=== PATIENT | male | born 1950 | race Caucasian/White ===

== ENCOUNTER 2018-08-07 12:09 | Emergency (ER) | payer OTHER, BC ==
[2018-08-07] MEDS ORDERED: SODIUM CHLORIDE 1,000 ML IV STA (12:32)
[2018-08-07] MEDS ORDERED: ACETAMINOPHEN 1000 MG/100 ML VIAL (NON FORMULARY) IVPB ONE (12:32)
[2018-08-07] MEDS ORDERED: FAMOTIDINE 20 MG/50 ML IVPB 20 MG/50 ML MG IVPB ONE ×2 (12:32→12:34)
[2018-08-07 12:33] VITALS: BMI 32.6
[2018-08-07 12:33] LABS: URINE APPEARANCE Clear; URINE BILIRUBIN Negative (NEGATIVE); URINE COLOR Yellow; URINE GLUCOSE (UA) Negative (NEGATIVE); URINE KETONE Negative (NEGATIVE); URINE LEUK ESTERASE Negative (NEGATIVE); URINE NITRITE Negative (NEGATIVE); URINE PROTEIN Negative (NEGATIVE); URINE UROBILINOGEN 0.2 (0.2-1.0)
[2018-08-07] MEDS ORDERED: ACETAMINOPHEN INJECTION 100 ML IVPB ONE (12:34)
--- NOTE | 2018-08-07 12:35 | PDOC ---
History of Present Illness - General Chief Complaint: Pain Stated Complaint: BACK PAIN Time Seen by Provider: 08/07/18 12:13 - History of Present Illness Initial Comments: 08/07/18 12:33 68 M with h/o HTN, kidney stones, presents to ED with R sided abdominal pain. Pt states that the pain started about 4 days ago. It is constant, progressively worsening, radiating from his RUQ to his RLQ and R flank. Pt denies F/C. Denies CP/SOB. Denies N/V/D. Pt states that he was recently treated for H pylori and completed his course of abx 2 weeks ago. Pt states that he has had prior cholecystectomy. Past History - Past Medical History Allergies/Adverse Reactions: Allergies Allergy/AdvReac Type Severity Reaction Status Date / Time No Known Allergies Allergy Verified 01/22/16 08:38 Home Medications: Ambulatory Orders Aspirin [ASA -] 81 mg PO DAILY 10/15/14 Atenolol [Tenormin -] 25 mg PO DAILY 10/15/14 Ascorbate Calcium [Vitamin C] 500 mg PO DAILY 08/07/18 Cholecalciferol (Vitamin D3) [Vitamin D] 2,000 unit PO DAILY 08/07/18 [place]field-3/Dha/Epa/Fish Oil [Fish Oil 1,360 mg Softgel] 1 each PO DAILY 08/07/18 Oxycodone HCl/Acetaminophen [Percocet 5-325 mg Tablet] 1 tab PO Q6H PRN #20 tablet MDD 4 tabs 08/07/18 Pantoprazole Sodium [Protonix] 40 mg PO DAILY 08/07/18 Tamsulosin HCl [Flomax] 0.4 mg PO DAILY #7 cap.er.24h 08/07/18 Vitamin B Complex 1 each PO DAILY 08/07/18 Asthma: No Cancer: Yes (RT ARM) Diabetes: No HTN: Yes Kidney Stones: Yes - Immunization History Immunization Up to Date: Yes - Suicide/Smoking/Psychosocial Hx Smoking Status: No Smoking History: Never smoked Have you smoked in the past 12 months: No Number of Cigarettes Smoked Daily: 0 Cigars Per Day: 0 Hx Alcohol Use: Yes (glass of wine daily) Drug/Substance Use Hx: No Substance Use Type: None Review of Systems - Review of Systems Comments:: 08/07/18 12:34 "GENERAL/CONSTITUTIONAL: No fever or chills. No weakness. HEAD, EYES, EARS, NOSE AND THROAT: No change in vision. No ear pain or discharge. No sore throat. CARDIOVASCULAR: No chest pain, no shortness of breath, no loss of consciousness RESPIRATORY: No cough, wheezing, or hemoptysis. GASTROINTESTINAL: +R sided abdominal pain, No nausea, vomiting, diarrhea or constipation. GENITOURINARY: No dysuria, frequency, or change in urination. MUSCULOSKELETAL: No joint or muscle swelling or pain. No neck or back pain. SKIN: No rash NEUROLOGIC: No vertigo, no change in strength/sensation. ENDOCRINE: No increased thirst. No abnormal weight change. HEMATOLOGIC/LYMPHATIC: No anemia, easy bleeding, or history of blood clots. ALLERGIC/IMMUNOLOGIC: No hives or skin allergy. *Physical Exam - Physical Exam Comments: 08/07/18 12:34 GENERAL: Awake, alert, and fully oriented, in no acute distress. HEAD: No signs of trauma EYES: PERRLA, EOMI, sclera anicteric, conjunctiva clear ENT: Auricles normal inspection, hearing grossly normal, nares patent, oropharynx clear without exudates. Moist mucosa NECK: Nontender, no stepoffs, Normal ROM, supple, no lymphadenopathy, JVD, or masses LUNGS: Breath sounds equal, clear to auscultation bilaterally. No wheezes, and no crackles HEART: Regular rate and rhythm, normal S1 and S2, no murmurs, rubs or gallops ABDOMEN: + RUQ and RLQ TTP, Soft, normoactive bowel sounds. No guarding, no rebound. No masses, no CVAT EXTREMITIES: Normal range of motion, no edema. No clubbing or cyanosis. No cords, erythema, or tenderness NEUROLOGICAL: Cranial nerves II through XII intact. 5/5 strength and sensation in all extremities, Normal speech, normal gait, normal cerebellar function SKIN: Warm, Dry, normal turgor, no rashes or lesions noted. ED Treatment Course - LABORATORY CBC & Chemistry Diagram: 08/07/18 12:41 08/07/18 12:41 - RADIOLOGY Radiology Studies Ordered: Category Date Time Status ABDOMEN & PELVIS CT WITH CONTR [CT] Stat CT Scan 08/07/18 12:31 Ordered Medical Decision Making - Medical Decision Making 08/07/18 12:34 68 M with RUQ and RLQ abdominal pain. Pt has had prior cholecystectomy. Suspect renal colic given h/o kidney stones, though pt without CVAT. Also consider appy , though less likely given lack of fevers and vomiting. Will also r/o gastric perf given history of H pylori. - Labs, UA - CTAP - GI cocktail 08/07/18 13:52 Cr 1.7 (pt's baseline) - unable to get contrast CT CTAP non-con ordered Labs otherwise wnl. 08/07/18 14:23 CT shows 3mm stone in R ureter. Pt with baseline renal function. No evidence of infection. 08/07/18 14:38 Pt reassessed - pain is well controlled. Pt tolerating PO Pt is well appearing, with normal vitals. Clinically stable for DC at this time. I discussed the physical exam findings, ancillary test results and final diagnoses with the patient. I answered all of the patient's questions. The patient was satisfied with the care received and felt comfortable with the discharge plan and treatment plan. The patient agrees to follow up with the primary care physician within 24-72 hours. *DC/Admit/Observation/Transfer Diagnosis at time of Disposition: Kidney stone - Discharge Dispostion Disposition: HOME Condition at time of disposition: Good - Prescriptions Prescriptions: Oxycodone HCl/Acetaminophen [Percocet 5-325 mg Tablet] 1 tab PO Q6H PRN #20 tablet MDD 4 tabs PRN Reason: Pain Tamsulosin HCl [Flomax] 0.4 mg PO DAILY #7 cap.er.24h - Referrals Referrals: Tadeo Regalado MD [Primary Care Provider] - Saravanan Urbina MD [Staff Physician] - - Patient Instructions Printed Discharge Instructions: DI for Kidney Stones Additional Instructions: You have a 3mm kidney stone on the right side. Drink plenty of water to help it pass. Take the flomax as prescribed, and take one percocet every 6 hours as needed for pain. You can take up to two at a time if you need. If you experience worsening pain, fevers, vomiting, or any other concerning symptoms, return to the ER immediately. Otherwise, follow up with a urologist within 1 week. Call the number provided to make an appointment. - Post Discharge Activity - Attestations Physician Attestion: 08/07/18 14:40 I, Dr. Charanjit Monique MD, attest that this document has been prepared under my direction and personally reviewed by me in its entirety. I further attest, that it accurately reflects all work, treatment, procedures and medical decision -making performed by me.
[2018-08-07] MEDS ORDERED: morphine CARPU-JECT 4 MG/1 ML DISP.SYRIN IVPUSH ONE ×2 (12:56→13:46)
[2018-08-07] MEDS ORDERED: morphine SULFATE 4 MG/ML VIAL ONE ×2 (12:57→13:51)
[2018-08-07 13:03] LABS: BASO % 0.6 % (0-2.0); EOS % 0.6 % (0-4.5); HEMATOCRIT 42.2 % (35.4-49); LYMPH % 23.5 % (8-40); MCH 29.9 pg (25.7-33.7); MCHC 33.1 g/dl (32.0-35.9); MEAN CELL VOLUME 90.5 fl (80-96); MEAN PLT VOLUME 9.3 fl (7.5-11.1); MONO % 7.3 % (3.8-10.2); PLATELET COUNT 202 K/MM3 (134-434); RBC 4.67 M/mm3 (4.00-5.60); RDW 12.8 % (11.9-15.9); WHITE BLOOD COUNT 7.9 K/mm3 (4.0-10.8)
[2018-08-07 13:09] LABS: ALBUMIN 4.1 g/dl (3.5-5.0); ALK PHOS 44 U/L (32-92); ANION GAP 10 MMOL/L (8-16); BILIRUBIN,TOTAL 0.8 mg/dl (0.2-1.0); BLOOD UREA NITROGEN 27 mg/dl (7-18); CALCIUM 8.8 mg/dl (8.4-10.2); CHLORIDE 103 mmol/L (98-107); CO2 25 mmol/L (22-28); CREATININE 1.7 mg/dl (0.6-1.3); GLUCOSE,RANDOM 103 mg/dl (74-106); POTASSIUM 4.5 mmol/L (3.5-5.1); SGOT/AST 28 U/L (10-42); SGPT/ALT 29 U/L (10-40); SODIUM 138 mmol/L (136-145); TOT PROT 7.3 g/dl (6.4-8.3)
[2018-08-07 13:48] LABS: EPI CELLS NONE SEEN /HPF; URINE WBC NONE SEEN (0-2)
[2018-08-07 14:02] VITALS: BP 155/80; PULSE 75; TEMP 98.2
[2018-08-07] MEDS ORDERED: MAG HYDROX/AL HYDROX/SIMETH 30 ML UNIT-DOSE CUP PO ONE (14:36)
[2018-08-07] MEDS ORDERED: MAG HYDROX/AL HYDROX/SIMETH 30 ML UNIT-DOSE CUP ONE (14:43)
[2018-08-07 14:51] LABS: LIPASE 68 U/L (73-393)
== END 2018-08-07 14:51 | disposition home or self-care (01) ==
LOC: FER 12:09
PROC: 3E033NZ Introduction of Analgesics, Hypnotics, Sedatives into Peripheral Vein, Percutaneous Approach (ICD-10-PCS; principal; 2018-08-07)
PROC: 3E033GC Introduction of Other Therapeutic Substance into Peripheral Vein, Percutaneous Approach (ICD-10-PCS; 2018-08-07)
PROC: 3E0337Z Introduction of Electrolytic and Water Balance Substance into Peripheral Vein, Percutaneous Approach (ICD-10-PCS; 2018-08-07)
DX: N20.0 Calculus of kidney (principal); Z87.442 Personal history of urinary calculi; I10 Essential (primary) hypertension; Z79.82 Long term (current) use of aspirin
CPT/HCPCS: 36415; 74176-TC; 80053; 81003; 81015; 82550; 83690; 84484; 85025; 96365; 96375; 96376; 99284-25; J0131; J7030

== ENCOUNTER 2019-12-15 09:35 | Emergency (ER) | payer OTHER, BC ==
--- NOTE | 2019-12-15 09:46 | PDOC ---
Rapid Medical Evaluation Time Seen by Provider: 12/15/19 09:38 Medical Evaluation: Allergies Allergy/AdvReac Type Severity Reaction Status Date / Time No Known Allergies Allergy Verified 01/22/16 08:38 12/15/19 09:38 HPI: The patient is a 69 y/o male with hx of htn and prostate cancer who presents for intermittent dry cough, fever, and diarrhea, and decreased taste x 9 days. LBM 1/2 hr ago which was brown watery. The patient has no exposure to coronavirus. - Recent travel. They are concerned they have coronavirus and present for testing. - difficulty breathing, shortness of breath, chest pain, lightheadedness, dizziness and n/v. Other 12 point ROS reviewed and negative. EXAM: General: NAD, well-appearing, AAO x3. ENT: No rhinorrhea or nasal congestion. Neck: FROM, no midline tenderness Lungs: Clear to auscultation bilateral without wheezes rales or rhonchi. Normal excursion. Patient is able to speak in full sentences. Heart: Regular rate and rhythm, S1-S2 present, no murmurs rubs or gallops. Abdomen: Non-distended MSK/Extremities: no decreased ROM, no obvious deformities. No cyanosis Neuro: Normal gait, cranial nerves II through XII grossly intact. SKIN: No rashes, bruising. Color normal appering A/P: Cough Case discussed with Dr. sherman and requesting labs, ivf, cxr. Pt also added for ua, ucx Discharge Disposition - Diagnosis Diarrhea - Referrals - Patient Instructions - Post Discharge Activity
[2019-12-15] MEDS ORDERED: SODIUM CHLORIDE 1,000 ML IV STA (10:35)
--- NOTE | 2019-12-15 11:05 | PDOC ---
*Physical Exam - Vital Signs Last Vital Signs Temp Pulse Resp BP Pulse Ox 100.1 F H 77 18 154/76 98 12/15/19 09:39 12/15/19 09:39 12/15/19 09:39 12/15/19 09:39 12/15/19 09:39 - Physical Exam General Appearance: Yes: Nourished, Appropriately Dressed. No: Apparent Distress HEENT: positive: NAZANIN, Normal ENT Inspection, Pharynx Normal Neck: positive: Supple Respiratory/Chest: positive: Lungs Clear, Normal Breath Sounds. negative: Chest Tender, Respiratory Distress, Accessory Muscle Use Cardiovascular: positive: Regular Rhythm, Regular Rate Musculoskeletal: positive: Normal Inspection Extremity: positive: Normal Inspection, Normal Range of Motion Integumentary: positive: Normal Color Neurologic: positive: Fully Oriented, Alert, Normal Mood/Affect, Normal Response ED Treatment Course - LABORATORY CBC & Chemistry Diagram: 12/15/19 11:20 12/15/19 11:20 Medical Decision Making - Medical Decision Making 12/15/19 11:06 I assumed care of this 69-year-old male with history of hypertension sent in by PCP for evaluation due to 9 days history of intermittent cough, fevers, body aches, nasal congestion and intermittent shortness of breath. Patient reported no shortness of breath today. Patient reported last fever was early this morning of 100.1 which he took Tylenol. Patient called PCP about symptoms PCP advised him to come to the ED. Patient has not been taking anything for cough as the cough has been intermittent. Reported sick at home with the same symptoms. Denies recent travel or any known exposure to covid individual. Denies any other symptoms Clinical exam unremarkable except low-grade temperature of 100.1 F. Patient in no acute distress. Lungs clear to auscultation bilateral and normal cardio e xam. Patient sitting down comfortably in a chair. CBC, CMP, lactate and blood cultures ordered from outside things. Chest x-ray shows no acute abnormality or infiltrate. IV hydration will 1 L normal saline ordered. Dispo based on lab results 12/15/19 12:02 CBC lab unremarkable. UA within normal limits. Chemistry lab pending. Patient is symptomatic now and will be discharged home with strict follow-up precautions if normal chemistry lab 12/15/19 12:20 Chemistry lab shows mildly elevated creatinine which is unchanged from 8 years ago. Mildly elevated LFTs which is likely from viral infection. Patient is asymptomatic and stable for discharge with advised to continue home Tylenol as needed for fever, increase fluid intake. Patient reported was given Z-Antonio antibiotic by PCP which he has been taking and will take the last dose today. Patient stable for discharge Discharge - Discharge Information Problems reviewed: Yes Clinical Impression/Diagnosis: URI with cough and congestion, Acute viral syndrome Diarrhea Qualifiers: Diarrhea type: unspecified type Qualified Code(s): R19.7 - Diarrhea, unspecified Condition: Stable Disposition: HOME - Admission No - Follow up/Referral Referrals: Tadeo Regalado MD [Primary Care Provider] - - Patient Discharge Instructions Patient Printed Discharge Instructions: DI for Viral Upper Respiratory Infection -- Adult, [facility]-Coronavirus Instructions Additional Instructions: Your blood work is normal. Your chest x-ray is normal and shows no pneumonia. Your symptoms likely caused by viral infection. Continue taking home Tylenol as needed for fever. Increase fluid intake. Rest and wear mask at all time at home and refrain from public gatherings until improved symptoms for at least 72 hours. Come back to the emergency room if for shortness of breath, worsening fevers, difficulty breathing or weakness - Post Discharge Activity
[2019-12-15 11:51] LABS: BASO % 0.2 % (0-2.0); HEMOGLOBIN 13.6 GM/dL (11.7-16.9); MCH 30.2 pg (25.7-33.7); MEAN CELL VOLUME 88.9 fl (80-96); MEAN PLT VOLUME 9.4 fl (7.5-11.1); MONO % 8.7 % (3.8-10.2); NEUT % 71.1 % (42.8-82.8); PLATELET COUNT 112 K/MM3 (134-434); RDW 13.9 % (11.9-15.9); WHITE BLOOD COUNT 4.6 K/mm3 (4.0-10.0)
[2019-12-15 11:52] LABS: EPI CELLS 4 /uL (0-25.1); HYALINE CASTS 1 /uL (0-3.1); URINE APPEARANCE CLEAR; URINE BACTERIA 3 /uL (0-1359); URINE BILIRUBIN NEGATIVE (NEGATIVE); URINE COLOR DK YELLOW; URINE GLUCOSE (UA) NEGATIVE (NEGATIVE); URINE KETONE NEGATIVE (NEGATIVE); URINE LEUK ESTERASE NEGATIVE (NEGATIVE); URINE NITRITE NEGATIVE (NEGATIVE); URINE PROTEIN 1+ (NEGATIVE); URINE RBC 14 /uL (0-23.9); URINE UROBILINOGEN 0.2 mg/dL (0.2-1.0); URINE WBC 8 /uL (0-25.8)
[2019-12-15 11:56] VITALS: BP 121/61; PULSE 76; TEMP 99.3; BMI 32.6
[2019-12-15 12:15] LABS: ALBUMIN 3.2 g/dl (3.4-5.0); BILIRUBIN,TOTAL 0.4 mg/dL (0.2-1); BLOOD UREA NITROGEN 15.5 mg/dL (7-18); CALCIUM 7.7 mg/dL (8.5-10.1); CREATININE 1.6 mg/dL (0.55-1.3); MAGNESIUM 2.1 mg/dL (1.8-2.4); POTASSIUM 4.2 mmol/L (3.5-5.1); TOT PROT 6.9 g/dl (6.4-8.2)
== END 2019-12-15 12:20 | disposition home or self-care (01) ==
LOC: JER 09:35
DX: J06.9 Acute upper respiratory infection, unspecified (principal); B34.9 Viral infection, unspecified
CPT/HCPCS: 36415; 71045-TC-FY; 80053; 81003; 83605; 83690; 83735; 85025; 87040; 87086; 99284-25; J7030